=== PATIENT | male | born 1980 | race American Indian/Alaskan Native ===

== ENCOUNTER 2017-10-12 17:17 | Emergency (ER) | payer MEDICAID ==
--- NOTE | 2017-10-12 17:35 | EDPHY ---
H & P Time Seen by Provider: 10/12/17 17:30 HPI/ROS: CHIEF COMPLAINT: Found down HISTORY OF PRESENT ILLNESS: 37-year-old male presents after being found down. He was found down behind a building and was unresponsive. Empty bottles of hand membership manager was found in his backpack. He was initially unresponsive, but then became combative when the paramedics tried to arouse him. He was placed in restraints and brought to the emergency department. Blood sugar was adequate prior to arrival. REVIEW OF SYSTEMS: Unable to determine - Physical Exam Exam: General Appearance: Alert, calm, looks at me when I speak, refuses to answer questions Eyes: Pupils equal and round, no conjunctival pallor ENT, Mouth: Mucous membranes moist Neck: Normal inspection Respiratory: Lungs are clear to auscultation Cardiovascular: Regular rate and rhythm Gastrointestinal: Abdomen is soft and nontender Neurological: Alert, slurred speech, nonfocal exam Skin: Warm and dry Extremities: Normal inspection Psychiatric: Unable to determine Constitutional: Initial Vital Signs Temperature (C) 36.3 C 10/12/17 17:37 Respiratory Rate 14 10/12/17 17:37 Blood Pressure 118/82 H 10/12/17 17:37 O2 Sat (%) 94 10/12/17 17:37 O2 Delivery Mode Room Air Allergies/Adverse Reactions: No Known Allergies Allergy (Unverified 10/12/17 17:42) Home Medications: Medication Instructions Recorded NK [No Known Home Meds] 10/12/17 Medical Decision Making ED Course/Re-evaluation: This patient presents with alcohol intoxication. No evidence of injury or illness. Will observe in the emergency department until he is able to walk. 7:30 p.m.-able to walk with a steady gait. Will discharge to the [facility]. Librium prepack given. - Data Points Laboratory Results: Laboratory Results 10/12/17 17:50 10/12/17 17:50 Medications Given: Discontinued Medications Chlordiazepoxide (Librium 25 Mg Prepack#6) 1 btl TAKEHOME EDNOW ONE Stop: 10/12/17 19:35 Last Admin: 10/12/17 19:36 Dose: 1 btl Departure - Departure Disposition: Home, Routine, Self-Care Clinical Impression: Alcoholic intoxication Qualifiers: Complication of substance-induced condition: uncomplicated Qualified Code(s): F10.920 - Alcohol use, unspecified with intoxication, uncomplicated Condition: Good Instructions: Chlordiazepoxide/Clidinium (By mouth), Alcohol Intoxication (ED) Additional Instructions: Take Librium 1 tablet every 6 hr as needed for alcohol withdrawal. Referrals: [facility],. [Clinic] - As per Instructions
[2017-10-12 18:42] VITALS: BP 108/75
[2017-10-12 18:49] LABS: PLATELET COUNT 142 10^3/uL (150-400)
[2017-10-12] MEDS ORDERED: CHLORDIAZEPOXIDE 25MG PREPK#6 BTL TAKEHOME ONE ×2 (19:34)
== END 2017-10-12 19:48 | disposition home or self-care (01) ==
DX: F10.920 Alcohol use, unspecified with intoxication, uncomplicated (principal)
CPT/HCPCS: G0480

== ENCOUNTER 2017-10-13 15:27 | Emergency (ER) | payer MEDICAID ==
--- NOTE | 2017-10-13 15:34 | EDPHY ---
H & P Time Seen by Provider: 10/13/17 15:32 HPI/ROS: CHIEF COMPLAINT: Intoxication HISTORY OF PRESENT ILLNESS: Patient is a 37-year-old homeless man who is brought by EMS for intoxication. He is well-known to the department. He was here yesterday for drinking hand dynamics ax solution architect. Today he was doing the same and had a large bottle of hand dynamics ax solution architect next to him. He was going to go to the [facility] but was refusing vital signs so they did not feel safe clearing him and brought him here. Here in the department he some its to vital signs and they are normal. He is not diabetic. Police are placing him on an [facility] hold. No trauma. REVIEW OF SYSTEMS: Unable to obtain secondary to intoxication Physical Exam General Appearance: WD/WN, no apparent distress, slightly slow but answers all questions appropriately EENT: PERRL/EOMI, normal ENT inspection, TMs normal, pharynx normal Neck: non-tender, full range of motion, supple, normal inspection Respiratory: chest non-tender, lungs clear, normal breath sounds Cardiac/Chest: normal peripheral pulses, regular rate, rhythm, P Peripheral Pulses: 2+: carotid (R), carotid (L), femoral (R), femoral (L), dorsalis-pedis (R), dorsalis-pedis (L) Abdomen: normal bowel sounds, non-tender, soft Extremities: normal range of motion, non-tender, normal inspection, normal capillary refill Neurological: calm, 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 Appearance: appropriate appearance, appropriate insight, neat, denies illness Behavior/Eye Contact/Speech: cooperative, decreased rate of speech Thoughts/Hallucinations: normal thought pattern, no apparent hallucination Skin: normal color, warm/dry Source: Patient Exam Limitations: No limitations - Medical/Surgical History Hx Asthma: No Hx Chronic Respiratory Disease: No Hx Diabetes: Yes Hx Cardiac Disease: No Hx Renal Disease: No Hx Cirrhosis: No Hx Alcoholism: Yes Hx HIV/AIDS: No Hx Splenectomy or Spleen Trauma: No Other PMH: Knee surgery (rt), DM1 - Family History Significant Family History: No pertinent family hx - Social History Smoking Status: Never smoked Alcohol Use: Heavy Drug Use: Marijuana Constitutional: Initial Vital Signs Temperature (C) 36.3 C 10/13/17 15:30 Heart Rate 71 10/13/17 15:30 Respiratory Rate 18 10/13/17 15:30 Blood Pressure 112/84 H 10/13/17 15:30 O2 Sat (%) 91 L 10/13/17 15:30 O2 Delivery Mode Room Air Allergies/Adverse Reactions: No Known Allergies Allergy (Unverified 10/12/17 17:42) Home Medications: Medication Instructions Recorded NK [No Known Home Meds] 10/12/17 Medical Decision Making ED Course/Re-evaluation: The patient denied being diabetic but according but according to our medical records he is. We will check a fingerstick glucose as well. His vital signs are normal once he is able to ambulate We will release him either to the [facility] or the street whichever he prefers. 7:00 p.m. The patient is able to ambulate without difficulty. We will transfer him to the [facility]. They have requested Librium. Differential Diagnosis: Partial list of the Differential diagnosis considered include but were not limited to; intoxication, polysubstance abuse and although unlikely based on the history and physical exam, I also considered head injury, infection, stroke , psychosis. - Data Points Laboratory Results: 10/13/17 15:40 POC Glucose 109 mg/dL H mg/dL (70-100) Medications Given: Discontinued Medications Chlordiazepoxide (Librium 25 Mg Prepack#6) 1 btl TAKEHOME EDNOW ONE Stop: 10/13/17 18:53 Last Admin: 10/13/17 19:16 Dose: 1 btl Point of Care Test Results: 10/13/17 15:40 POC Glucose 109 H Departure - Departure Disposition: Home, Routine, Self-Care Clinical Impression: Alcohol dependence Qualifiers: Substance use status: with intoxication Complication of substance-induced condition: with delirium Qualified Code(s): F10.221 - Alcohol dependence with intoxication delirium Alcoholic intoxication Qualifiers: Complication of substance-induced condition: with delirium Qualified Code(s): F10.921 - Alcohol use, unspecified with intoxication delirium Condition: Fair Instructions: Chlordiazepoxide/Clidinium (By mouth), Alcohol Intoxication (ED) Referrals: NONE *PRIMARY CARE P,. [Primary Care Provider] - As per Instructions [facility],. [Clinic] - As per Instructions
[2017-10-13] MEDS ORDERED: CHLORDIAZEPOXIDE 25MG PREPK#6 BTL TAKEHOME ONE (18:52)
[2017-10-13 19:18] VITALS: BP 118/80
== END 2017-10-13 19:20 | disposition home or self-care (01) ==
LOC: EDUNIT#
DX: F10.221 Alcohol dependence with intoxication delirium (principal); E10.9 Type 1 diabetes mellitus without complications

== ENCOUNTER 2017-10-22 12:10 | Emergency (ER) | payer MEDICAID ==
[2017-10-22 12:27] VITALS: BP 104/78
--- NOTE | 2017-10-22 12:27 | EDPHY ---
H & P Time Seen by Provider: 10/22/17 12:25 HPI/ROS: CHIEF COMPLAINT: Alcohol intoxication HISTORY OF PRESENT ILLNESS: 37-year-old male presents to the emergency department by ambulance after he was found unable to ambulate due to alcohol intoxication. He drinks daily. He states that he drank a lot of alcohol today. He denies any other substance abuse. No reported trauma. He denies a headache. Denies chest pain or difficulty breathing. Denies abdominal pain or vomiting. He is asking for a sandwich. Denies injury to upper or lower extremities. REVIEW OF SYSTEMS: Constitutional: No fever, no chills. Eyes: No double or blurry vision. ENT: No sore throat. Respiratory: No cough, no shortness of breath. Cardiac: No chest pain. Gastrointestinal: No abdominal pain, vomiting or diarrhea. Genitourinary: No dysuria. Musculoskeletal: No neck or back pain. Skin: No rashes. Neurological: No headache. Past Medical/Surgical History: Alcoholism, diabetes Social History: Homeless Smoking Status: Never smoked Physical Exam: General Appearance: Alert, no distress. No visible signs of trauma to his head. Smells strongly of alcohol. Eyes: Pupils equal and round. Extraocular motions are all intact. ENT: Mouth: Mucous membranes moist. Respiratory: No wheezing, rhonchi, or rales, lungs are clear to auscultation. Cardiovascular: Regular rate and rhythm. Gastrointestinal: Abdomen is soft and nontender, no masses, no rebound or guarding, bowel sounds normal. Neurological: Uncooperative, cannot determine. Skin: Warm and dry, no rashes. Musculoskeletal: Nontender to palpate along the cervical, thoracic or lumbar spine. Neck is supple. Extremities: Full range of motion and no peripheral edema. Psychiatric: no agitation. Constitutional: Initial Vital Signs Temperature (C) 37.1 C 10/22/17 12:10 Heart Rate 109 H 10/22/17 12:10 Respiratory Rate 14 10/22/17 12:10 Blood Pressure 104/78 10/22/17 12:10 O2 Sat (%) 93 10/22/17 12:10 O2 Delivery Mode Room Air O2 (L/minute) 2 Allergies/Adverse Reactions: No Known Allergies Allergy (Unverified 10/12/17 17:42) Home Medications: Medication Instructions Recorded NK [No Known Home Meds] 10/12/17 Medical Decision Making ED Course/Re-evaluation: 37-year-old male presents to the emergency department with acute alcohol intoxication. The patient has no signs of trauma on examination. I do not think imaging studies are indicated. His random blood sugar in the field was 201. He has a known history of diabetes. He is asking for a sandwich. The patient was monitored for several hours in the emergency department. He had no complaints upon discharge. [facility] Differential Diagnosis: Altered mental status including but not limited to hypoglycemia, infectious process, electrolyte abnormality, head injury and intoxicants. Departure - Departure Disposition: Home, Routine, Self-Care Clinical Impression: Alcohol intoxication Qualifiers: Complication of substance-induced condition: uncomplicated Qualified Code(s): F10.920 - Alcohol use, unspecified with intoxication, uncomplicated Condition: Good Instructions: Alcohol Intoxication (ED) Additional Instructions: You should not drink alcohol in excess. Referrals: [facility] [Outside] - As per Instructions
--- NOTE | 2017-10-22 15:34 | ASMTLACE ---
LACE Length of stay for Answers: Less than 1 day current admission Acuity / Level of Answers: No Care: Did the patient have an inpatient admission? # of Emergency department Answers: 3-4 visits in the last 6 months Social determinants Answers: History of substance abuse (ETOH, street drugs, prescription drugs, etc.) Homelessness (street, long-term) Mental health diagnosis (anxiety, depression, pers onality disorders, etc.) Score: 12 Date Signed: 10/22/2017 03:33 PM Electronically Signed By:Jessica Feldman LCSW
== END 2017-10-22 15:28 | disposition home or self-care (01) ==
LOC: EDUNIT#
DX: F10.920 Alcohol use, unspecified with intoxication, uncomplicated (principal); E11.9 Type 2 diabetes mellitus without complications

== ENCOUNTER 2017-10-23 19:37 | Emergency (ER) | payer MEDICAID ==
--- NOTE | 2017-10-23 19:42 | EDPHY ---
H & P Time Seen by Provider: 10/23/17 19:37 HPI/ROS: CHIEF COMPLAINT: Hypothermia HISTORY OF PRESENT ILLNESS: The patient is a 37-year-old homeless alcoholic man well known to our department who was found intoxicated lying in the rain. Paramedics were concerned about hypothermia. The patient otherwise at his baseline and has no acute complaints. He is asking for food. He was undressed in place a warm blankets by paramedics. His blood glucose was slightly elevated. REVIEW OF SYSTEMS: Constitutional: See HPI denies: chills, fever, recent illness, recent injury EENTM: denies: blurred vision, double vision, nose congestion Respiratory: denies: cough, shortness of breath Cardiac: denies: chest pain, irregular heart rate, lightheadedness, palpitations Gastrointestinal/Abdominal: denies: abdominal pain, diarrhea, nausea, vomiting, blood streaked stools Genitourinary: denies: dysuria, frequency, hematuria, pain Musculoskeletal: denies: joint pain, muscle pain Skin: denies: lesions, rash, jaundice, bruising Neurological: denies: headache, numbness, paresthesia, tingling, dizziness, weakness Hematologic/Lymphatic: denies: blood clots, easy bleeding, easy bruising Immunologic/allergic: denies: HIV/AIDS, transplant EXAM: GENERAL: Well-appearing, well-nourished and in no acute distress. HEAD: Atraumatic, normocephalic. EYES: Pupils equal round and reactive to light, extraocular movements intact, sclera anicteric, conjunctiva are normal. ENT: TMs normal, nares patent, oropharynx clear without exudates. Moist mucous membranes. NECK: Normal range of motion, supple without lymphadenopathy or JVD. LUNGS: Breath sounds clear to auscultation bilaterally and equal. No wheezes rales or rhonchi. HEART: Regular rate and rhythm without murmurs, rubs or gallops. ABDOMEN: Soft, nontender, normoactive bowel sounds. No guarding, no rebound. No masses appreciated. BACK: No CVA tenderness, no spinal tenderness, step-offs or deformities EXTREMITIES: Chronic right knee pain, post replacement. Normal range of motion , no pitting or edema. No clubbing or cyanosis. NEUROLOGICAL: Cranial nerves II through XII grossly intact. Normal speech, normal gait. 5/5 strength, normal movement in all extremities, normal sensation PSYCH: Normal mood, normal affect. SKIN: Warm, dry, normal turgor, no visible rashes or lesions. Source: Patient Exam Limitations: No limitations - Medical/Surgical History Hx Asthma: No Hx Chronic Respiratory Disease: No Hx Diabetes: Yes Hx Cardiac Disease: No Hx Renal Disease: No Hx Cirrhosis: No Hx Alcoholism: Yes Hx HIV/AIDS: No Hx Splenectomy or Spleen Trauma: No Other PMH: Knee surgery (rt), DM, ETOH abuse - Family History Significant Family History: No pertinent family hx - Social History Smoking Status: Never smoked Alcohol Use: Heavy Drug Use: Marijuana Constitutional: Initial Vital Signs Temperature (C) 36.4 C 10/23/17 19:40 Heart Rate 62 10/23/17 19:40 Respiratory Rate 16 10/23/17 19:40 Blood Pressure 131/95 H 10/23/17 19:40 O2 Sat (%) 93 10/23/17 19:40 O2 Delivery Mode Room Air Allergies/Adverse Reactions: No Known Allergies Allergy (Verified 10/23/17 19:47) Home Medications: Medication Instructions Recorded NK [No Known Home Meds] 10/12/17 Medical Decision Making ED Course/Re-evaluation: The patient is intoxicated. He is normal 3rd make. We will transfer to the [facility]. Patient was able to ambulate easily out of the emergency department. He is taking taxi to the [employer] [facility] [employer]. Differential Diagnosis: Partial list of the Differential diagnosis considered include but were not limited to; alcohol intoxication, hypothermia and although unlikely based on the history and physical exam, I also considered injury, head injury, electrolyte abnormality. Departure - Departure Disposition: Home, Routine, Self-Care Clinical Impression: Alcoholic intoxication Qualifiers: Complication of substance-induced condition: with unspecified complication Qualified Code(s): F10.929 - Alcohol use, unspecified with intoxication, unspecified Condition: Fair Instructions: Alcohol Intoxication (ED) Referrals: Patient,NotPresent [Unknown] - As per Instructions [facility],. [Clinic] - As per Instructions
[2017-10-23 20:14] VITALS: BP 132/95
== END 2017-10-23 20:17 | disposition home or self-care (01) ==
LOC: EDUNIT#
DX: F10.929 Alcohol use, unspecified with intoxication, unspecified (principal); E11.9 Type 2 diabetes mellitus without complications

== ENCOUNTER 2017-10-30 18:41 | Emergency (ER) | payer MEDICAID ==
--- NOTE | 2017-10-30 18:35 | EDPHY ---
H & P Time Seen by Provider: 10/30/17 18:59 Constitutional: Initial Vital Signs Temperature (C) 36 C 10/30/17 18:41 Heart Rate 73 10/30/17 18:41 Respiratory Rate 16 10/30/17 18:41 Blood Pressure 114/82 H 18 18:41 O2 Sat (%) 96 10/30/17 18:41 O2 Delivery Mode Room Air Allergies/Adverse Reactions: No Known Allergies Allergy (Verified 10/23/17 19:47) Home Medications: Medication Instructions Recorded NK [No Known Home Meds] 10/12/17 Medical Decision Making ED Course/Re-evaluation: CHIEF COMPLAINT: Alcohol intoxication HISTORY OF PRESENT ILLNESS: The patient is a chronic alcoholic living on the street. Patient drinks on a daily basis and obtains whatever alcohol is available. Patient was found by bystanders who called EMS system. Patient has had multiple ER visits over the last several years for the same complaint. Patient denies any injuries denies loss of consciousness denies any recent trauma. Patient denies coingestion patient denies suicidal or homicidal behavior. REVIEW OF SYSTEMS: A 10 point review of systems was performed and is negative with the exception of the elements mentioned in the history of present illness. PHYSICAL EXAM: General Appearance: [place], alert, well hydrated, appropriate, and non-toxic appearing. Head: Atraumatic without scalp tenderness or obvious injury Eyes: Pupils equal, round, reactive to light and accommodation, EOMI, no trauma , no injection. Ears: Clear bilaterally, no perforation, normal landmarks Nose: Atraumatic, no rhinorrhea, clear. Throat: There is no erythema or exudates, no lesions, normal tonsils, mucus membranes moist. Neck: Supple, 2+ carotid upstroke, non-tender, no lymphadenopathy. Respiratory: No retractions, no distress, no wheezes, and no accessory muscle use. Lungs are clear to auscultation bilaterally. Cardiovascular: Regular rate and rhythm, no murmurs, rubs, or gallops. Bilateral carotid, radial, dorsalis pedis, and posterior tibial pulses intact. Good capillary refill all extremities. Gastrointestinal: Abdomen is soft, non-tender, non-distended, no masses, no rebound, no guarding, no peritoneal signs. Musculoskeletal: Normal active ROM of all extremities, atraumatic. Neurological: Unstable gait. Alert, appropriate, and interactive. The patient has normal DTRs and non-focal cranial nerves, motor, sensory, and cerebellar exam. Skin: No rashes, good turgor, no nodules on palpation. PAST MEDICAL HISTORY: Alcoholism PAST SURGICAL HISTORY: Denies SOCIAL HISTORY: Homeless, not employed, single DIFFERENTIAL DIAGNOSIS: The differential diagnosis for the patient's altered mental status included but was not limited to hypoglycemia, infectious process, electrolyte abnormality, head injury, neurologic process, anemia, cardiac process, and intoxicants. MEDICAL DECISION MAKING: I serially examined this patient since the patient's arrival here in the emergency department. The patient continues to become more and more sober with each examination. 2019: I serially questioned the patient and the patient's story given initially has not changed. The patient still denies any trauma, any head injury, and any illicit drug use. At this point, the patient is walking the department freely and is clinically sober. We're discharging the patient to the [facility] in stable condition. Departure - Departure Disposition: Home, Routine, Self-Care Clinical Impression: Alcoholic intoxication Qualifiers: Complication of substance-induced condition: uncomplicated Qualified Code(s): F10.920 - Alcohol use, unspecified with intoxication, uncomplicated Condition: Good Instructions: Alcohol Intoxication (ED), Abuse of Alcohol (ED) Additional Instructions: 1. Please refrain from abusing alcohol. 2. Return to the emergency department immediately for fever, vomiting, confusion , headache, abdominal pain or other worsening of condition. 3. Followup with your primary care physician within 72 hours for reevaluation. Referrals: [facility] 24 Hours [Outside] - As per Instructions Report Scribed for: Neo Carranza Report Scribed by: Hannah Purdy Date of Report: 10/30/17 Time of Report: 18:54
[2017-10-30 19:37] VITALS: BP 128/83
== END 2017-10-30 20:10 | disposition home or self-care (01) ==
LOC: EDUNIT#
DX: F10.920 Alcohol use, unspecified with intoxication, uncomplicated (principal)